=== PATIENT | male | born 2000 | race Two or more races ===

== ENCOUNTER 2023-01-15 16:54 | Emergency (ER) | payer SELFPAY ==
[~2023-01-15] VITALS: Ht 182.9 cm; Wt 82.0 kg
[2023-01-15 16:56] VITALS: BP 145/76
[2023-01-15 18:24] LABS: Basophils # (auto) 0.1 10 ^3/uL (0-0.2); Basophils % (auto) 0.6 % (0.0-2.0); Eosinophils # (auto) 0.1 10 ^3/uL (0-0.8); Eosinophils % (auto) 0.8 % (0.0-7.0); Hematocrit 40.6 % (41.0-53.0); Hemoglobin 13.7 g/dL (13.5-17.5); Lymphocytes # (auto) 1.5 10 ^3/uL (0.4-5.4); Lymphocytes % (auto) 16.4 % (10.0-50.0); Mean Corpuscular Hemoglobin 29.7 pg (28.0-32.0); Mean Corpuscular Hgb Conc. 33.8 g/dL (32.0-36.0); Mean Corpuscular Volume 87.8 fL (80.0-100.0); Monocytes # (auto) 0.5 10 ^3/uL (0-1.3); Monocytes % (auto) 5.8 % (0.0-12.0); Neutrophils % (auto) 76.4 % (37.0-80.0); Red Blood Cells 4.63 10^6/uL (4.5-5.90); Red Cell Distribution Width 13.8 % (11.8-14.3); White Blood Cell 9.2 10^3/uL (4.4-10.8)
[2023-01-15 18:37] LABS: Albumin 4.4 g/dL (3.4-5.0); Calcium 8.6 mg/dL (8.5-10.1); Potassium 4.2 mmol/L (3.5-5.1)
[2023-01-15 18:40] LABS: Bilirubin, Total 0.5 mg/dL (0.2-1.0); Total Protein 7.6 g/dL (6.4-8.2)
[2023-01-15] MEDS ORDERED: HYDR-4902 PO (19:04)
[2023-01-15] MEDS ORDERED: AMOX875T4 PO (19:04)
== END 2023-01-15 20:53 | disposition home or self-care (01) ==
LOC: ER 16:54
DX: S68.111A Complete traumatic metacarpophalangeal amputation of left index finger, initial encounter (principal); W27.0XXA Contact with workbench tool, initial encounter; Y93.89 Activity, other specified; Y92.89 Other specified places as the place of occurrence of the external cause; Y99.8 Other external cause status
CPT/HCPCS: 29130; 36415; 73140; 80053; 85025; 86850; 86900; 86901